=== PATIENT | female | born 1990 | race Caucasian/White ===

== ENCOUNTER 2016-08-01 15:15 | Emergency (ER) | payer OTHER ==
[~2016-08-01 15:15] MED LIST: CLON-352 PO; QUET1TAB66 PO
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
[2016-08-01 16:06] VITALS: BP 136/89; PULSE 85; RESP 15; TEMP 98.1; O2SAT 96
[2016-08-01 16:44] LABS: AUTOMATED NEUTROPHIL # 8.5 TH/MM3 (1.8-7.7); BASOPHIL % 0.2 % (0.0-2.0); EOSINOPHIL % 0.2 % (0.0-4.0); HEMATOCRIT 43.9 % (35.0-46.0); HEMO FLAGS DIFF FINAL; MEAN CELL VOLUME 89.3 FL (80.0-100.0); MEAN CORPUSCULAR HEMOGLOBIN 30.7 PG (27.0-34.0); MEAN CORPUSCULAR HGB CONC 34.4 % (32.0-36.0); MONO % 4.9 % (0.0-8.0); NEUT % 84.7 % (16.0-70.0); PLATELET COUNT 267 TH/MM3 (150-450); RED BLOOD COUNT 4.92 MIL/MM3 (4.00-5.30); RED CELL DISTRIBUTION WIDTH 13.1 % (11.6-17.2)
[2016-08-01 16:46] LABS: AMPHETAMINE, URINE NEG (NEG); BARBITURATES, URINE NEG (NEG); COCAINE, URINE NEG (NEG)
[2016-08-01 16:54] LABS: ANION GAP 9 MEQ/L (5-15); AST (GOT) 27 U/L (15-37); BICARBONATE 24.1 MEQ/L (21.0-32.0); BLOOD UREA NITROGEN 17 MG/DL (7-18); CHLORIDE 107 MEQ/L (98-107); GLOMERULAR FILTRATION RATE 73 ML/MIN (>89); POTASSIUM 4.1 MEQ/L (3.5-5.1); SODIUM (NA) 140 MEQ/L (136-145)
[2016-08-01 16:57] LABS: ALKALINE PHOSPHATASE 84 U/L (45-117); ALT (GPT) 24 U/L (10-53); TOTAL BILIRUBIN ADULT 0.3 MG/DL (0.2-1.0)
[2016-08-01] MEDS ORDERED: QUET1TAB11 PO (18:01)
[2016-08-01] MEDS ORDERED: HYDR-3133 PO (18:02)
[2016-08-01] MEDS ORDERED: CLON0.1T PO (18:02)
[2016-08-01 18:07] VITALS: BP 128/77; PULSE 70; RESP 15; TEMP 98.5; O2SAT 100
[2016-08-01 22:56] VITALS: BP 133/59; PULSE 88; RESP 18
[2016-08-02 02:48] VITALS: BP 112/55; PULSE 66; RESP 18; O2SAT 97
[2016-08-02] MEDS ORDERED: IBUPROFEN 600 MG TAB PO ONE (05:30)
[2016-08-02 06:15] VITALS: BP 125/61; PULSE 82; RESP 18; O2SAT 100
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
[2016-08-02 10:00] VITALS: BP 127/70; PULSE 78; RESP 18
== END 2016-08-02 12:58 | disposition home or self-care (01) ==
LOC: NEPJ 15:15
DX: F43.25 Adjustment disorder with mixed disturbance of emotions and conduct (principal)
CPT/HCPCS: 80053; 80307; 80320; 84703; 85025; 99284